=== PATIENT | female | born 1980 | race Caucasian/White ===

== ENCOUNTER 2017-09-16 16:29 | Outpatient (CLI) | payer BC | END 2017-09-16 16:30 | disposition home or self-care (01) | LOC: BICMAMMO 16:29 | PROVIDERS: ATTEND Obstetrics & Gynecology | DX: Z12.31 Encounter for screening mammogram for malignant neoplasm of breast (principal); Z80.3 Family history of malignant neoplasm of breast | CPT/HCPCS: 77063; 77067 ==

== ENCOUNTER 2017-09-22 10:37 | Outpatient (CLI) | payer BC | END 2017-09-22 10:38 | disposition home or self-care (01) | LOC: BICMAMMO 10:37 | PROVIDERS: ATTEND Obstetrics & Gynecology | DX: N63.10 Unspecified lump in the right breast, unspecified quadrant (principal) | CPT/HCPCS: G0279 ==

== ENCOUNTER 2019-01-25 12:26 | Outpatient (CLI) | payer OTHER ==
--- NOTE | 2019-01-25 13:02 | MMO ---
Bilateral MAMMO Bilat Screen [facility]. CLINICAL HISTORY: Patient is 38 years old and is seen for screening. The patient has the following family history of breast cancer: mother, at age 35. The patient has no personal history of cancer. The patient has a history of right Excisional Biopsy in March, - fibroadenoma, right needle biopsy in March, - fibroadenoma and left Excisional Biopsy in 2011. VIEWS: The views performed were: bilateral craniocaudal with tomosynthesis; bilateral mediolateral oblique with tomosynthesis; and bilateral exaggerated craniocaudal. FILMS COMPARED: The present examination has been compared to prior imaging studies performed at [facility] on 04/01/2014, 07/15/2016, 09/16/2017 and 09/22/2017. This study has been interpreted with the assistance of computer-aided detection. MAMMOGRAM FINDINGS: The breasts are extremely dense, which may lower the sensitivity of mammography. There are stable benign appearing calcifications seen in both breasts. Nodularity is stable. There are no suspicious masses, suspicious calcifications, or new areas of architectural distortion. IMPRESSION: THERE IS NO MAMMOGRAPHIC EVIDENCE OF MALIGNANCY. A ROUTINE FOLLOW-UP MAMMOGRAM IN 1 YEAR IS RECOMMENDED. THE RESULTS OF THIS EXAM WERE SENT TO THE PATIENT. ACR BI-RADS Category 2 - Benign finding MAMMOGRAPHY NOTE: 1. A negative mammogram report should not delay a biopsy if a dominant of clinically suspicious mass is present. 2. Approximately 10% to 15% of breast cancers are not detected by mammography. 3. Adenosis and dense breasts may obscure an underlying neoplasm. Reported by: WILLIAM VALENZUELA MD Electonically Signed: [id number]
== END 2019-01-25 12:27 | disposition home or self-care (01) ==
LOC: BICMAMMO 12:26
PROVIDERS: ATTEND Obstetrics & Gynecology
DX: Z12.31 Encounter for screening mammogram for malignant neoplasm of breast (principal); Z80.3 Family history of malignant neoplasm of breast
CPT/HCPCS: 77063; 77067

== ENCOUNTER 2019-10-09 12:49 | Outpatient (CLI) | payer BC ==
[2019-10-09] MEDS ORDERED: Magnevist 469MG/ML 20 ML VIAL ONE (13:56)
--- NOTE | 2019-10-09 14:00 | PET ---
Radionucleotide PET scan with CT attenuation correction HISTORY: Rectosigmoid cancer. Initial staging. FINDINGS: Physiologic uptake of radiotracer throughout the enteric system and along each urinary trac t. The elongated circumferential wall thickening/mass involving the rectosigmoid colon shows markedly in creased uptake max SUV 21.5. Right pararectal lymph nodes show max SUV 4.9. Enlarged lymph node at the left posterior lower pelvis shows max SUV 11.6. Slightly enlarged lymph nodes within the left lower retroperitoneal just below the level of the aorti c bifurcation show max SUV 6.2. Physiologic activity noted at the endometrium. Within the central aspect of the left liver lobe medial segment, a focal area of increased activity s hows max SUV 6.4. A more subtle and smaller focal area of hypermetabolic activity immediately superior and lateral to the first shows max SUV 3.6. No corresponding morphologic mass evident on the CT images. At the superior pole of the right thyroid lobe, a round low density mass is 1.5 cm greatest diameter and shows max SUV 24.0. A 0.8 cm lymph node currently immediately medial to the anterior margin of the right sternocleidomast oid muscle at the level of the hyoid shows max SUV 6.5. Nondiagnostic CT attenuation correction images show the spleen to be 13.0 cm length without focal abn ormality. 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 Hypermetabolic abnormality at the superior pole of the right thyroid gland is favored to represent a thyroid mass (rather than an immediately adjacent lymph node). This abnormality and the hypermetabolic right cervical level 2 lymph node are concerning for a separate primary neoplasm (thyr oid). Please consider dedicated thyroid sonogram for better anatomic evaluation and for potential cytologic analysis. Mild splenomegaly.
--- NOTE | 2019-10-09 14:54 | MRI ---
EXAM: MRI of the pelvis without and with contrast HISTORY: Rectal cancer staging COMPARISON: None TECHNIQUE: Multiplanar multisequence MR images were obtained of the pelvis without and with IV contra st. FINDINGS: There is a circumferential mass involving the rectum measuring 5.9 cm in length. Invasion of the mesorectal fat: None ; the mass appears full-thickness with complete involvement of the muscularis propria. Distance of mass from the anal verge: 5.9 cm Closest margin to the mesorectal fascia: 1.7 cm Involvement of adjacent organs: None Pelvic lymph nodes: Multiple enlarged mesorectal fat lymph nodes measuring up to 1.1 cm in size. Ther e is an enlarged left pelvic sidewall lymph node measuring 2.5 cm in size. There are enlarged right pelvic sidewall lymph nodes measuring up to 1.7 cm in size. Osseous structures: No marrow signal abnormality Other visualized intrapelvic structures: 2.5 cm posterior uterine fibroid. There appears to be a tamp on in the vagina. IMPRESSION: Rectal cancer as above. Staging: T stage: T3 N stage: N2 M stage: Mx
== END 2019-10-09 12:50 | disposition home or self-care (01) ==
LOC: PET 12:49
PROVIDERS: ATTEND Internal Medicine Hematology & Oncology
DX: C20 Malignant neoplasm of rectum (principal); C19 Malignant neoplasm of rectosigmoid junction; C78.6 Secondary malignant neoplasm of retroperitoneum and peritoneum; C78.7 Secondary malignant neoplasm of liver and intrahepatic bile duct; C77.9 Secondary and unspecified malignant neoplasm of lymph node, unspecified; R16.1 Splenomegaly, not elsewhere classified
CPT/HCPCS: 72197; 78815; A9552; A9579

== ENCOUNTER 2019-10-12 08:01 | Outpatient (CLI) | payer BC, OTHER ==
[2019-10-12 14:52] LABS: #Basophils 0.1 thou/uL (0.0-0.2); #Eosinphils 0.2 thou/uL (0.0-0.7); #Lymphocytes 1.3 thou/uL (1.20-3.40); #Monocytes 0.5 thou/uL (0.11-0.59); #Neutrophils 5.5 thou/uL (1.40-6.50); %Basophils 0.7 % (0.0-1.0); %Eosinophils 2.6 % (0.0-10.0); %Lymphocytes 17.4 % (21.0-51.0); %Monocytes 6.8 % (0.0-10.0); %Neutrophils 72.5 % (42.0-75.0); Hemoglobin 10.5 g/dL (12.0-16.0); Mean Corpuscular HGB CONC 31.8 g/dL (32.0-36.0); Mean Corpuscular Hemoglobin 24.5 pg (27.0-31.0); Platelet Count 303 thou/uL (130-400); RBC Distribution Width 14.1 % (11.5-14.5); Red Blood Cell (RBC) Count 4.29 mill/uL (4.20-5.40); White Blood Cell (WBC) Count 7.5 thou/uL (4.8-10.8)
[2019-10-12 15:13] LABS: Anion Gap 14 mmol/L (10-20); BUN (Urea Nitrogen) 14 mg/dL (7.0-18.7); Calc. Creatinine Clearance 0 mL/min (70-130); Calcium 9.2 mg/dL (7.8-10.44); Carbon Dioxide 25 mmol/L (22-29); Chloride 106 mmol/L (98-107); Estimated GFR-MDRD 73; Glucose 112 mg/dL (70-105); Potassium 4.5 mmol/L (3.5-5.1); Sodium 140 mmol/L (136-145)
[2019-10-13 12:17] LABS: SARS-CoV-2 MS2 Positive; SARS-CoV-2 N Gene Negative; SARS-CoV-2 S Gene Negative; SARS-CoV-2 orf1ab Negative
[2019-10-15 04:01] LABS: BHCG - Serum Negative (NEGATIVE); Pregs Control Background? CLEAR/WHITE (CLR/WHITE); Pregs Control Bar Appear? YES (CONTROL BAR)
== END 2019-10-12 08:02 | disposition home or self-care (01) ==
LOC: LABBT 08:01
PROVIDERS: ATTEND Specialist
DX: Z01.812 Encounter for preprocedural laboratory examination (principal); Z11.59 Encounter for screening for other viral diseases; C18.9 Malignant neoplasm of colon, unspecified
CPT/HCPCS: 84703; 87635; U0003

== ENCOUNTER 2019-10-17 11:30 | Day surgery (SDC) | payer BC ==
[2019-10-15 10:06] VITALS: BMI 29.5
[2019-10-17] MEDS ORDERED: Acetaminophen 500 MG TAB ONE (11:42)
[2019-10-17] MEDS ORDERED: Ketorolac Tromethamine 30 MG/ML VIAL ONE (12:39)
[2019-10-17] MEDS ORDERED: Fentanyl 100 MCG/2 ML VIAL ONE (13:02)
[2019-10-17] MEDS ORDERED: Bupivacaine 0.25% HCL 30 ML VIAL ONE (13:07)
[2019-10-17] MEDS ORDERED: Lidocaine 1% w/Epinephrine 1:100K 20 ML VIAL ONE (13:07)
--- NOTE | 2019-10-17 13:08 | HP ---
CHIEF COMPLAINT: Sigmoid colon cancer. HISTORY OF PRESENT ILLNESS: The patient is a 39-year-old white female. She has recently been diagnosed with what was felt to be advanced stage sigmoid colon cancer. Neoadjuvant chemotherapy has been recommended. This patient has been seen already by Dr. Pederson. The patient requires a MediPort for chemotherapy. As he is out of town this week I have been asked to place a MediPort to expedite the initiation of chemotherapy. She has no new complaints today. PAST MEDICAL HISTORY: Otherwise unremarkable. PAST SURGICAL HISTORY: Tonsillectomy at age 33. CURRENT MEDICATIONS: None. ALLERGIES: NO KNOWN DRUG ALLERGIES. PERSONAL AND SOCIAL HISTORY: She is with 2 children. She does not smoke and does not drink alcohol. REVIEW OF SYSTEMS: Otherwise unremarkable. FAMILY HISTORY: Noncontributory. PHYSICAL EXAMINATION: VITAL SIGNS: She is afebrile. Vital signs within normal limits. She is 5 feet 8 inches tall. Weighs 194 pounds. GENERAL: She is a well-developed, well-nourished, pleasant white female, resting in bed, in no acute distress. is present at bedside. She is alert and oriented x3. HEAD, EYES, EARS, NOSE, AND THROAT: Unremarkable. NECK: Supple without mass or tenderness. LUNGS: Clear to auscultation. CARDIAC: Regular rate and rhythm without murmur. ABDOMEN: Soft, nontender, nondistended. ASSESSMENT: The patient with sigmoid colon cancer. PLAN: MediPort placement. I discussed the operation in detail with the patient as well as potential risks. She understands and agrees to procedure with surgery at this time. Job ID: [id number]
[2019-10-17] MEDS ORDERED: PROPOFOL 200 MG/20 ML VIAL ONE (13:25)
--- NOTE | 2019-10-17 14:34 | RAD ---
RADIOGRAPH CHEST 1 VIEW: DATE: 10/17/2019 HISTORY: 39-year-old female status post MediPort placement FINDINGS: There are no airspace densities, pulmonary edema, pneumothorax, or cardiomegaly. The lateral costophr enic angles are sharp. There is a right subclavian MediPort with distal tip overlying the SVC. IMPRESSION: 1. Right-sided implantable vascular access port. No pneumothorax. 2. No acute cardiopulmonary findings.
--- NOTE | 2019-10-18 13:01 | OP ---
DATE OF PROCEDURE: 10/17/2019 PREOPERATIVE DIAGNOSIS: Advanced colon cancer. POSTOPERATIVE DIAGNOSIS: Advanced colon cancer. PROCEDURE PERFORMED: Placement of power compatible low-profile right subclavian MediPort. ANESTHESIA: Total intravenous anesthesia with local using a mixture of 0.25% Marcaine and 1% lidocaine with epinephrine. INDICATIONS: The patient is a 39-year-old white female. She has been diagnosed with advanced colon cancer, and chemotherapy has been recommended. MediPort was placed for chemotherapy administration. DESCRIPTION OF PROCEDURE: Informed consent was obtained. The patient was taken to the operating room where total intravenous anesthesia was obtained with the patient in supine position. Right periclavicular area was prepped with ChloraPrep and draped in sterile fashion. Local anesthetic was infiltrated and a large-gauge needle was passed under the clavicle in the subclavian vein. Guidewire was passed through the needle and fluoroscopically confirmed to enter the superior vena cava. Additional local anesthetic was infiltrated and transverse incision was created based on needle insertion site. A subcutaneous pocket was dissected inferiorly. Introducer dilator was passed over the guidewire under fluoroscopic guidance. The guidewire and dilator were removed, and the catheter was passed through the introducer. The tip of the catheter was positioned at the atriocaval junction and the catheter was trimmed to the appropriate length and secured to the locking hub of the MediPort. The port was then placed in the subcutaneous pocket where it was secured to the pectoral fascia with 2 interrupted sutures of 3-0 Prolene. The incision was then closed in layers with 3-0 and 4-0 Monocryl. Additional local anesthetic was infiltrated. The port was cannulated with a [place] needle and it aspirated blood freely and was flushed with heparinized saline. Dermabond was placed externally on the skin incision. There were no complications. Blood loss was negligible. The patient tolerated the procedure well and was taken to recovery room in stable condition. FINDINGS: I chose a low-profile power compatible MediPort secondary to her body habitus. This was placed uneventfully into the right subclavian vein. Fluoroscopy was used throughout the procedure. There were no complications and essentially no blood loss. The patient tolerated the procedure well and was taken to recovery room in stable condition. Job ID: [id number]
== END 2019-10-17 14:55 | disposition home or self-care (01) ==
LOC: SDC 11:30
PROVIDERS: ATTEND Specialist
PROC: 0JH63WZ Insertion of Totally Implantable Vascular Access Device into Chest Subcutaneous Tissue and Fascia, Percutaneous Approach (ICD-10-PCS; principal; 2019-10-17)
PROC: 05H533Z Insertion of Infusion Device into Right Subclavian Vein, Percutaneous Approach (ICD-10-PCS; principal; 2019-10-17)
PROC: B516ZZA Fluoroscopy of Right Subclavian Vein, Guidance (ICD-10-PCS; principal; 2019-10-17)
DX: C18.7 Malignant neoplasm of sigmoid colon (principal)
CPT/HCPCS: 71045; 76000; C1788; J0690; J1642; J1885; J2704; J3010; S0020

== ENCOUNTER 2020-05-09 14:56 | Day surgery (SDC) | payer BC ==
[2020-05-09] MEDS ORDERED: diphenhydrAMINE 25 MG CAP PO SCH (16:45)
[2020-05-09] MEDS ORDERED: Acetaminophen 500 MG TAB PO SCH (16:45)
[2020-05-09 20:39] VITALS: BP 129/87; TEMP 99.9
[2020-05-09 21:06] LABS: #Eosinphils 0.1 thou/uL (0.0-0.7); #Lymphocytes 0.7 thou/uL (1.20-3.40); #Monocytes 0.6 thou/uL (0.11-0.59); #Neutrophils 5.4 thou/uL (1.40-6.50); %Basophils 0.4 % (0.0-1.0); %Eosinophils 1.1 % (0.0-10.0); %Lymphocytes 10.3 % (21.0-51.0); %Monocytes 8.4 % (0.0-10.0); %Neutrophils 79.8 % (42.0-75.0); Anisocytosis SLIGHT = 6-15 cells (100X) (0-5/hpf); MDiff Complete? YES; Mean Corpuscular HGB CONC 32.4 g/dL (32.0-36.0); Mean Corpuscular Hemoglobin 30.8 pg (27.0-31.0); Mean Platelet Volume 9.9 fL (7.4-10.4); Platelet Count 35 thou/uL (130-400); Polychromasia SLIGHT = 2-3 cells (100X) (0-2/hpf); RBC Distribution Width 17.5 % (11.5-14.5); Tear Drops SLIGHT = 2-5 cells (100X) (0-1/hpf); White Blood Cell (WBC) Count 6.8 thou/uL (4.8-10.8)
== END 2020-05-09 20:43 | disposition home or self-care (01) ==
LOC: SDC 14:56 → ONC 15:00 → SDC 20:43
PROVIDERS: ATTEND Internal Medicine Hematology & Oncology
PROC: 30233N1 Transfusion of Nonautologous Red Blood Cells into Peripheral Vein, Percutaneous Approach (ICD-10-PCS; principal; 2020-05-09)
DX: D64.9 Anemia, unspecified (principal); D69.6 Thrombocytopenia, unspecified
CPT/HCPCS: 36430; 85025; 86850; 86900; 86901; J1642; P9016; Q0163

== ENCOUNTER 2020-05-19 12:19 | Day surgery (SDC) | payer BC ==
[2020-05-19] MEDS ORDERED: Sodium Chloride 0.9% 20 ML ONE (12:49)
[2020-05-19] MEDS ORDERED: Acetaminophen 500 MG TAB PO SCH (13:15)
[2020-05-19] MEDS ORDERED: diphenhydrAMINE 25 MG CAP PO SCH (13:15)
[2020-05-19 17:25] VITALS: BP 121/63; TEMP 98.5
== END 2020-05-19 17:35 | disposition home or self-care (01) ==
LOC: ONC/OP 12:19
PROVIDERS: ATTEND Internal Medicine Hematology & Oncology
PROC: 30233N1 Transfusion of Nonautologous Red Blood Cells into Peripheral Vein, Percutaneous Approach (ICD-10-PCS; principal; 2020-05-19)
DX: D64.9 Anemia, unspecified (principal)
CPT/HCPCS: 36430; 86850; 86900; 86901; J1642; P9016; Q0163

== ENCOUNTER 2020-05-22 09:02 | Day surgery (SDC) | payer BC ==
[2020-05-22] MEDS ORDERED: Sodium Chloride 0.9% 30 ML ONE (09:13)
[2020-05-22] MEDS ORDERED: diphenhydrAMINE 25 MG CAP PO PRN (10:04)
[2020-05-22] MEDS ORDERED: Acetaminophen 500 MG TAB PO PRN (10:04)
[2020-05-22 15:39] VITALS: BP 106/59; TEMP 98.4
== END 2020-05-22 15:40 | disposition home or self-care (01) ==
LOC: ONC/OP 09:02
PROVIDERS: ATTEND Internal Medicine Hematology & Oncology
PROC: 30233N1 Transfusion of Nonautologous Red Blood Cells into Peripheral Vein, Percutaneous Approach (ICD-10-PCS; principal; 2020-05-22)
DX: D64.9 Anemia, unspecified (principal); D69.6 Thrombocytopenia, unspecified
CPT/HCPCS: 36430; 86850; 86900; 86901; J1642; P9016; Q0163

== ENCOUNTER 2020-06-03 08:46 | Day surgery (SDC) | payer BC ==
[2020-06-03] MEDS ORDERED: Sodium Chloride 0.9% 20 ML ONE (08:52)
[2020-06-03] MEDS ORDERED: diphenhydrAMINE 25 MG CAP PO SCH (09:00)
[2020-06-03] MEDS ORDERED: Acetaminophen 500 MG TAB PO SCH (09:00)
[2020-06-03 13:55] LABS: #Eosinphils 0.1 thou/uL (0.0-0.7); #Lymphocytes 0.8 thou/uL (1.20-3.40); #Monocytes 0.6 thou/uL (0.11-0.59); #Neutrophils 7.5 thou/uL (1.40-6.50); %Basophils 0.4 % (0.0-1.0); %Eosinophils 0.9 % (0.0-10.0); %Lymphocytes 8.6 % (21.0-51.0); %Monocytes 6.1 % (0.0-10.0); %Neutrophils 83.9 % (42.0-75.0); Hemoglobin 8.6 g/dL (12.0-16.0); Mean Corpuscular HGB CONC 33.7 g/dL (32.0-36.0); Mean Corpuscular Hemoglobin 32.1 pg (27.0-31.0); Mean Corpuscular Volume 95.3 fL (78.0-98.0); Mean Platelet Volume 8.1 fL (7.4-10.4); Platelet Count 129 thou/uL (130-400); RBC Distribution Width 16.7 % (11.5-14.5); Red Blood Cell (RBC) Count 2.67 mill/uL (4.20-5.40); White Blood Cell (WBC) Count 8.9 thou/uL (4.8-10.8)
[2020-06-03 13:59] VITALS: TEMP 98.3
[2020-06-03 14:00] VITALS: BP 106/61
== END 2020-06-03 13:52 | disposition home or self-care (01) ==
LOC: ONC/OP 08:46
PROVIDERS: ATTEND Internal Medicine Hematology & Oncology
PROC: 30233N1 Transfusion of Nonautologous Red Blood Cells into Peripheral Vein, Percutaneous Approach (ICD-10-PCS; principal; 2020-06-03)
DX: D64.9 Anemia, unspecified (principal); D69.6 Thrombocytopenia, unspecified
CPT/HCPCS: 36430; 85025; 86850; 86900; 86901; J1642; P9016; Q0163

== ENCOUNTER 2021-01-01 11:41 | Outpatient (CLI) | payer BC | END 2021-01-01 11:42 | disposition home or self-care (01) | LOC: BICMAMMO 11:41 | PROVIDERS: ATTEND Obstetrics & Gynecology | DX: Z12.31 Encounter for screening mammogram for malignant neoplasm of breast (principal); Z80.3 Family history of malignant neoplasm of breast; Z85.038 Personal history of other malignant neoplasm of large intestine | CPT/HCPCS: 77063; 77067 ==

== ENCOUNTER 2023-06-24 12:02 | Outpatient (CLI) | payer BC, OTHER | END 2023-06-24 12:03 | disposition home or self-care (01) | LOC: BICMAMMO 12:02 | PROVIDERS: ATTEND Family Medicine | DX: Z12.31 Encounter for screening mammogram for malignant neoplasm of breast (principal); Z80.3 Family history of malignant neoplasm of breast; Z85.038 Personal history of other malignant neoplasm of large intestine; Z85.850 Personal history of malignant neoplasm of thyroid | CPT/HCPCS: 77063; 77067 ==

== ENCOUNTER 2024-12-20 13:58 | Outpatient (CLI) | payer OTHER | END 2024-12-20 13:59 | disposition home or self-care (01) | LOC: BICMAMMO 13:58 | PROVIDERS: ATTEND Family Medicine | DX: Z12.31 Encounter for screening mammogram for malignant neoplasm of breast (principal); Z80.3 Family history of malignant neoplasm of breast; Z85.038 Personal history of other malignant neoplasm of large intestine; Z85.850 Personal history of malignant neoplasm of thyroid | CPT/HCPCS: 77063; 77067 ==